=== PATIENT | female | born 1955 | race Caucasian/White ===

== ENCOUNTER 2021-07-31 05:31 | Emergency (ER) | payer MEDICARE, OTHER ==
[~2021-07-31] VITALS: Ht 170.2 cm; Wt 86.4 kg
--- NOTE | 2021-07-31 05:51 | PHYS DOC ---
Adult General Chief Complaint Chief Complaint: MECHANICAL FALL HPI HPI Patient is a 66-year-old female presenting via EMS for fall. This was suffered at home when patient was ambulating to the bathroom and reports feeling weak falling forward hitting the right side of her body on the commode and subsequ ently falling on the ground. She denies any obvious head injury or losing consciousness although she cannot fully remember entirety of the event because she states it happened so fast. Patient lives at home with who heard the fall and subsequently called EMS due to difficulty getting patient up and reported right-sided chest wall and flank pain. On arrival, patient found to be hypoxic in the eighties and placed on supplemental oxygen via nasal cannula at 2 L with improvement otherwise hemodynamically stable. Patient subsequently transferred to our facility for further evaluation. On arrival, patient complaining of continued right sided chest wall and flank pain. She is a poor historian of her overall health but specifically denies any blood thinner use or changes in motor or sensory or neuro function. She does admit she is not vaccinated against COVID-19 (ALCON FOOTE DO) Review of Systems Review of Systems Fourteen body systems of review of systems have been reviewed. See HPI for pertinent positives and negative responses, other lazaro all other systems are negative, non-pertinent or non-contributory (ALCON FOOTE DO) Physical Exam Physical Exam Constitutional: Pt is oriented to person, place, and time. Pt appears well-developed and well- nourished. HEENT: Head: Normocephalic and atraumatic. TMs clear, no hemotympanum Conjunctivae and EOM are normal. Left pupil is equal, round, and reactive to light. Right pupil is equal round but not reactive to light and fixed at approximately 4 mm which is chronic per patient from prior surgery Oropharynx is clear and dry No hematomas or lacerations or abrasions to face or scalp OP clear, no blood, no malocclusion, dentition intact Nares clear, no nasal septal hematoma Midface stable Neck: C-spine midline nontender, no step-offs. C-collar in place on arrival Cardiovascular: Normal rate, regular rhythm and normal heart sounds. There is pain to palpation along right lateral chest wall without any visual nor palpable abnormalities Pulmonary/Chest: Effort normal and breath sounds normal. No respiratory distress. No wheezes. CTA bilaterally. Abdominal: Soft. Bowel sounds are normal. Pt exhibits no distension. There is no tenderness. Musculoskeletal: No bony tenderness to extremities, no deformities, full ROM extremities Chest wall stable Pelvis stable and non-tender No vertebral TTP and spine without stepoffs Neurological: Pt is alert and oriented to person, place, and time. Moving all extremities willfully, able to wiggle all fingers and toes Alert and oriented x 3 Cranial nerves II through XII intact Motor and sensory function fully intact No bladder or bowel anesthesia Downgoing toes bilaterally to stimulation Skin: Skin is warm and dry. No abrasions, no lacerations Psychiatric: Behavior is appropriate for situation (ALCON FOOTE DO) Current Patient Data Vital Signs Vital Signs Date Time Temp Pulse Resp B/P (MAP) Pulse Ox O2 Delivery O2 Flow Rate FiO2 07/31/21 05:31 98.1 101 18 132/44 (73) 76 Room Air Vital Signs Date Time Temp Pulse Resp B/P (MAP) Pulse Ox O2 Delivery O2 Flow Rate FiO2 07/31/21 05:38 92 NonRebreather Mask 10.0 07/31/21 05:31 98.1 101 18 132/44 (73) (ALCON FOOTE DO) EKG EKG [] (ALCON FOOTE DO) EKG Sinus rhythm, heart rate 90 beats minute, normal axis, no ST elevation or depression, no ectopy. Normal intervals. (JACKSON MICHELE MD) Radiology/Procedures Radiology/Procedures [] (ALCON FOOTE DO) Radiology/[place] [address] IMAGING REPORT Signed PATIENT: ANIBAL KATZ ACCOUNT: [id number] : 1955 LOCATION: ER AGE: 66 SEX: F EXAM STATUS: REG ER ORD. PHYSICIAN: ALCON FOOTE DO REASON: fall to right side chest wall with flank pain PROCEDURE: CT HEAD AND CERVICAL SPINE WO CT HEAD AND C-SPINE WO Date: 07/31/2021 6:05 AM Clinical Indication: Fall, pain Comparison: None. Technique: 5 mm axial tomographic images were obtained of the head without contrast. These were viewed on brain and bone windows. CT imaging of the cervical spine was performed without contrast. Coronal and sagittal reformatted images were performed. One or more of the following dose reduction techniques were utilized: Automated exposure control (AEC), Adjustment of mA and/or kV according to patient size, Use of iterative reconstruction technique such as ASiR, CT scan done according to ALARA and image gently/image wisely HEAD FINDINGS: The brain parenchyma is normal in attenuation. No intra- or extra-axial mass or fluid collection. No acute hemorrhage. The ventricles are normal in size, shape, and morphology. The veliz-white matter junction is normal. The basilar cisterns are patent. The visualized paranasal sinuses are normal. The visualized portions of the orbits and globes are normal. The mastoid air cells are clear. No aggressive osseous lesion or fracture. CERVICAL SPINE FINDINGS: Straightening of the cervical lordosis. Trace anterolisthesis at C3-4, C4-5, and C5-6. No acute fracture. No aggressive lytic or blastic osseous lesion. Moderate multilevel degenerative disc height loss. Multilevel disc protrusions and marginal osteophytes results in multilevel spinal canal stenosis. Multilevel uncovertebral and facet arthrosis results in multilevel neural foraminal narrowing. The thyroid gland is normal. No cervical lymphadenopathy. The visualized aerodigestive tract is unremarkable. Please see concurrent CT chest report for intrathoracic findings. IMPRESSION: 1. No acute intracranial process. 2. No acute osseous abnormality of the cervical spine. Electronically signed by: Shayla Rivera MD (07/31/2021 7:12 AM) [id number] DICTATED AND SIGNED BY: SHAYLA RIVERA MD DATE: 07/31/21 0708 CC: JACKSON MICHELE MD; ALCON FOOTE DO; NON,STAFF ~[facility] [address] [place] [address] IMAGING REPORT Signed PATIENT: ANIBAL KATZ ACCOUNT: [id number] : 1955 LOCATION: ER AGE: 66 SEX: F EXAM STATUS: REG ER ORD. PHYSICIAN: ALCON FOOTE DO REASON: fall to right side chest wall with flank pain, kidney transplant, PROCEDURE: CT CHEST ABDOMEN PELVIS WO CT CHEST_ABDOMEN_ AND PELVIS WITHOUT CONTRAST INDICATION: fall to right side chest wall with flank pain, kidney transplant. Hx of breast cancer, liver resection / History: COMPARISON: None. TECHNIQUE: Multiple contiguous axial images were obtained throughout the chest, abdomen, and pelvis without the use of IV contrast. Axial images were reformatted into coronal and sagittal planes. One or more of the following dose reduction techniques were utilized: Automated exposure control (AEC), Adjustment of mA and/or kV according to patient size, Use of iterative reconstruction technique such as ASiR, CT scan done according to ALARA and image gently/image wisely. FINDINGS: The thyroid is symmetric. No axillary lymphadenopathy. Few conspicuous but not pathologically enlarged by CT criteria mediastinal lymph nodes. No hilar aniket nopathy, although evaluation of the jenny is limited without IV contrast. Calcified mediastinal and left hilar lymph nodes consistent with remote granulomatous disease. The thoracic aorta diameter is normal. The cardiac size is normal. Coronary artery atherosclerotic disease. There is no pericardial effusion. The central airways are patent. Multifocal bilateral ground glass opacities and consolidations. Trace right pleural effusion with several foci of gas. Evaluation of solid abdominal viscera is limited without the use of IV contrast. Left hepatectomy. Innumerable hepatic low attenuation circumscribed lesions, with multiple areas of coarse calcification. Cholecystectomy. Spleen, pancreas, and adrenal glands are unremarkable. Bilateral nephrectomies. Right lower quadrant transplant kidney. There is no significant mesenteric or retroperitoneal adenopathy identified, though evaluation is limited without intravenous contrast. Trace free fluid in the left retroperitoneum. Colonic diverticulosis Bladder is unremarkable. Hysterectomy. There is no significant pelvic ascites. No significant iliac or inguinal adenopathy is identified. Acute right 7th-12th rib fractures, several displaced and several which are multipart fractures. Multilevel degenerative changes of the spine. IMPRESSION: 1. Acute right 7th-12th rib fractures, several displaced and several which are multipart fractures. Trace right pleural effusion with a few tiny locules of gas, which may represent a miniscule pneumothorax. 2. Diffuse bilateral groundglass opacities and consolidations, probably multifocal infection. 3. Trace simple free fluid in the retroperitoneum on the left, could be posttraumatic or chronic postsurgical changes. 4. Innumerable circumscribed low-attenuation hepatic lesions. Hepatic cysts are suspected, and given the bilateral nephrectomies correlate for history of polycystic kidney disease. However, as the patient has a history of breast cancer correlation with prior outside imaging is recommended to assess stability of these findings. Electronically signed by: Shayla Rivera MD (07/31/2021 7:31 AM) [id number] DICTATED AND SIGNED BY: SHAYLA RIVERA MD DATE: 07/31/21 0712 CC: JACKSON MICHELE MD; ALCON FOOTE DO; NON,STAFF ~[facility]0 0 (JACKSON MICHELE MD) Heart Score C/O Chest Pain: No Risk Factors: Risk Factors: DM, Current or recent (<one month) smoker, HTN, HLP, family history of CAD, obesity. Risk Scores: Risk Factors: DM, Current or recent (<one month) smoker, HTN, HLP, family history of CAD, obesity. (ALCON FOOTE DO) C/O Chest Pain: No HEART Score for Chest Pain: HEART Score for Chest Pain Response (Comments) Value History Slighlty/Non-Suspicious 0 ECG Normal 0 Age > 65 2 Risk Factors 1 or 2 Risk Factors 1 Troponin < Normal Limit 0 Total 3 (JACKSON MICHELE MD) Course & Med Decision Making Course & Med Decision Making Airway patent, breathing unlabored, IV access and vitals obtained concerning for hypoxia on room air Supplemental oxygen and subsequent nonrebreather applied. History limited due to patient being a poor historian overall, physical exam and initial ER work-up started At this time in care my shift was ending. Comprehensive signout given to oncoming physician. Please defer to their documentation regarding future care of patient in ER setting (ALCON FOOTE DO) Course & Med Decision Making Extensive patient care at shift change Patient positive for Covid, [facility] transfer line contacted at 0710 for possible patient transfer since patient has her transplant care team at [facility], discussed with transfer nurse Daniella, tells me there are no more Covid beds but she is going to talk to their physician coordinator Can be accepted to the trauma service due to this 7 rib fractures, accepted by Dr. Garvey at [facility] (JACKSON MICHELE MD) Dragon Disclaimer Dragon Disclaimer This electronic medical record was generated, in whole or in part, using a voice recognition dictation system. (ALCON FOOTE DO) Departure Departure: Impression: Primary Impression: Fall Additional Impressions: Multiple fractures of ribs, right side, initial encounter for closed fracture Pneumothorax, closed, traumatic COVID-19 Disposition: 02 SHORT TERM HOSPITAL Condition: GUARDED Referrals: PCP,NO (PCP) Problem Qualifiers ALCON FOOTE DO Jul 31, 2021 05:51 JACKSON MICHELE MD Jul 31, 2021 07:19
[2021-07-31 06:26] LABS: BASO % 0 % (0-3); EOS % 0 % (0-3); HEMATOCRIT 30.9 % (36.0-47.0); HEMOGLOBIN 9.8 g/dL (12.0-15.5); LYMPH # 0.4 x10^3/uL (1.0-4.8); LYMPH % 17 % (24-48); MEAN CORPUSCULAR HEMOGLOBIN 30 pg (25-35); MEAN CORPUSCULAR HGB CONC 32 g/dL (31-37); MEAN CORPUSCULAR VOLUME 95 fL (79-100); MONO # 0.2 x10^3/uL (0.0-1.1); MONO % 8 % (0-9); NEUT # 1.6 x10^3uL (1.8-7.7); NEUT % 74 % (31-73); PLATELET COUNT 71 x10^3/uL (140-400); RED BLOOD COUNT 3.27 x10^6/uL (3.50-5.40); RED CELL DISTRIBUTION WIDTH 15.2 % (11.5-14.5); WHITE BLOOD COUNT 2.2 x10^3/uL (4.0-11.0)
[2021-07-31 06:36] LABS: CALCIUM 8.3 mg/dL (8.5-10.1); CREATININE 3.9 mg/dL (0.6-1.0); GFR 11.5; POTASSIUM 4.9 mmol/L (3.5-5.1)
[2021-07-31 06:42] LABS: ALBUMIN/GLOBULIN RATIO 0.9 (1.0-1.7); TOTAL BILIRUBIN 0.5 mg/dL (0.2-1.0); TOTAL PROTEIN 6.2 g/dL (6.4-8.2)
--- NOTE | 2021-07-31 06:43 | EKG ---
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
[2021-07-31 06:54] LABS: BILIRUBIN,URINE NEG (NEG); CLARITY,URINE HAZY; COLOR,URINE YELLOW; GLUCOSE,URINE NEG (NEG); NITRITE,URINE NEG (NEG); UROBILINOGEN,URINE 0.2 mg/dL (0.2 mg/dL)
[2021-07-31 06:55] LABS: BACTERIA,URINE 0 /HPF (0-FEW); HYALINE CASTS, URINE OCC /HPF; RBC,URINE OCC /HPF (0-2)
[2021-07-31] MEDS ORDERED: IV NORMAL SALINE 500ML 500 ML IV ONE (07:00)
--- NOTE | 2021-07-31 07:14 | RAD ---
CT HEAD AND C-SPINE WO Date: 07/31/2021 6:05 AM Clinical Indication: Fall, pain Comparison: None. Technique: 5 mm axial tomographic images were obtained of the head without contrast. These were view ed on brain and bone windows. CT imaging of the cervical spine was performed without contrast. Coron al and sagittal reformatted images were performed. One or more of the following dose reduction techni ques were utilized: Automated exposure control (AEC), Adjustment of mA and/or kV according to patient size, Use of iterative reconstruction technique such as ASiR, CT scan done according to ALARA and im age gently/image wisely HEAD FINDINGS: The brain parenchyma is normal in attenuation. No intra- or extra-axial mass or fluid collection. No acute hemorrhage. The ventricles are normal in size, shape, and morphology. The veliz-white matter jonny ction is normal. The basilar cisterns are patent. The visualized paranasal sinuses are normal. The visualized portions of the orbits and globes are no rmal. The mastoid air cells are clear. No aggressive osseous lesion or fracture. CERVICAL SPINE FINDINGS: Straightening of the cervical lordosis. Trace anterolisthesis at C3-4, C4-5, and C5-6. No acute fract ure. No aggressive lytic or blastic osseous lesion. Moderate multilevel degenerative disc height loss. Multilevel disc protrusions and marginal osteophyt es results in multilevel spinal canal stenosis. Multilevel uncovertebral and facet arthrosis results in multilevel neural foraminal narrowing. The thyroid gland is normal. No cervical lymphadenopathy. The visualized aerodigestive tract is unrem arkable. Please see concurrent CT chest report for intrathoracic findings. IMPRESSION: 1. No acute intracranial process. 2. No acute osseous abnormality of the cervical spine. Electronically signed by: Sandeep Hatfield MD (07/31/2021 7:12 AM) [id number]
[2021-07-31] MEDS ORDERED: DEXAMETHASONE SOD PHOS 10 MG/ML VIAL. IV ONE (07:15)
[2021-07-31] MEDS ORDERED: AZITHROMYCIN 250 MG TABLET. PO ONE (07:15)
[2021-07-31] MEDS ORDERED: IV NORMAL SALINE 50ML 50 ML ONE (07:28)
[2021-07-31] MEDS ORDERED: cefTRIAXone SODIUM 1 GM VIAL ONE (07:28)
--- NOTE | 2021-07-31 07:33 | RAD ---
CT CHEST_ABDOMEN_ AND PELVIS WITHOUT CONTRAST INDICATION: fall to right side chest wall with flank pain, kidney transplant. Hx of breast cancer, l iver resection / History: COMPARISON: None. TECHNIQUE: Multiple contiguous axial images were obtained throughout the chest, abdomen, and pelvis without the use of IV contrast. Axial images were reformatted into coronal and sagittal planes. One or more of th e following dose reduction techniques were utilized: Automated exposure control (AEC), Adjustment of mA and/or kV according to patient size, Use of iterative reconstruction technique such as ASiR, CT sc an done according to ALARA and image gently/image wisely. FINDINGS: The thyroid is symmetric. No axillary lymphadenopathy. Few conspicuous but not pathologically enlarge d by CT criteria mediastinal lymph nodes. No hilar adenopathy, although evaluation of the jenny is peres ited without IV contrast. Calcified mediastinal and left hilar lymph nodes consistent with remote gra nulomatous disease. The thoracic aorta diameter is normal. The cardiac size is normal. Coronary artery atherosclerotic di sease. There is no pericardial effusion. The central airways are patent. Multifocal bilateral ground glass opacities and consolidations. Trace right pleural effusion with several foci of gas. Evaluation of solid abdominal viscera is limited without the use of IV contrast. Left hepatectomy. Innumerable hepatic low attenuation circumscribed lesions, with multiple areas of c oarse calcification. Cholecystectomy. Spleen, pancreas, and adrenal glands are unremarkable. Bilateral nephrectomies. Right lower quadrant transplant kidney. There is no significant mesenteric or retroperitoneal adenopathy identified, tho ugh evaluation is limited without intravenous contrast. Trace free fluid in the left retroperitoneum . Colonic diverticulosis Bladder is unremarkable. Hysterectomy. There is no significant pelvic ascites. No significant iliac or inguinal adenopathy is identified. Acute right 7th-12th rib fractures, several displaced and several which are multipart fractures. Mult ilevel degenerative changes of the spine. IMPRESSION: 1. Acute right 7th-12th rib fractures, several displaced and several which are multipart fractures. T race right pleural effusion with a few tiny locules of gas, which may represent a miniscule pneumotho rax. 2. Diffuse bilateral groundglass opacities and consolidations, probably multifocal infection. 3. Trace simple free fluid in the retroperitoneum on the left, could be posttraumatic or chronic post surgical changes. 4. Innumerable circumscribed low-attenuation hepatic lesions. Hepatic cysts are suspected, and given the bilateral nephrectomies correlate for history of polycystic kidney disease. However, as the patie nt has a history of breast cancer correlation with prior outside imaging is recommended to assess sta bility of these findings. Electronically signed by: Sandeep Hatfield MD (07/31/2021 7:31 AM) [id number]
--- NOTE | 2021-07-31 07:50 | RAD ---
XR CHEST 1V History: Reason: shob, fall with to right chest wall / Spl. Instructions: / History: Comparison: CT July 31, 2021. Findings: Mild multifocal ill-defined opacities bilaterally. Tiny right pleural effusion. No pneumothorax. Norm al heart size. Right-sided rib fractures better characterized on CT. Mild elevation of the right best diaphragm. Impression: 1. Mild multifocal ill-defined opacities, concerning for pneumonia including viral pneumonia. 2. Right-sided rib fractures. Electronically signed by: Jos Oneill DO (07/31/2021 7:47 AM) [id number]
[2021-07-31 10:42] VITALS: BP 142/76
[2021-07-31 11:00] LABS: % ATYL 1 % (0-0); % BANDS 11 % (0-9); % LYMPHS 11 % (24-48); % MONOS 7 % (0-10); % SEGS 70 % (35-66)
[2021-07-31 11:03] LABS: OVALOCYTES PRESENT; TEAR DROP CELLS PRESENT
[2021-07-31 11:04] LABS: BURR CELLS PRESENT
[2021-07-31 11:06] LABS: MICROCYTOSIS PRESENT; SCHISTOCYTES OCC
[2021-07-31 11:10] LABS: PLT ESTIMATE DECREASED (ADEQUATE)
[2021-07-31 11:11] LABS: POLYCHROMASIA PRESENT
== END 2021-07-31 11:45 | disposition short-term general hospital (02) ==
LOC: ER 05:31
DX: U07.1 COVID-19 (principal); S22.41XA Multiple fractures of ribs, right side, initial encounter for closed fracture; J93.9 Pneumothorax, unspecified; R51.9 Headache, unspecified; W18.39XA Other fall on same level, initial encounter; Y93.89 Activity, other specified; Y92.89 Other specified places as the place of occurrence of the external cause; Y99.8 Other external cause status
CPT/HCPCS: 36415; 70450; 71045; 71250; 72125; 74176; 80053; 81001; 82803; 84484; 85007; 85025; 87086; 87426; 93005; 96365; 96375; 96376; 99285; J0696; J1100; J3010; J7040